=== PATIENT | female | born 1990 | race Caucasian/White ===

== ENCOUNTER 2021-02-11 08:33 | Emergency (ER) | payer BC, OTHER ==
[~2021-02-11 08:33] MED LIST: ABILIFY10 MG PO; COUMADIN7.5 MG PO; ELIQUIS 5 MG TAB5 MG PO; ENOXAPARIN100 MG/1 M SC; IRON325 M1 PO; JANTOVEN7.5 MG PO; LAMICTAL TAB 1100 MG PO; LAMICTAL25 MG PO; MACROBID 100 M100 MG PO; MIRALAX17 GM PO; PREDNISONE 20 M20 MG PO; VITAMIN C500 M4 PO
[2021-02-11] MEDS ORDERED: BACLOFEN10 MG PO (10:22)
== END 2021-02-11 11:18 | disposition home or self-care (01) ==
LOC: ER1 08:33
DX: S20.212A Contusion of left front wall of thorax, initial encounter (principal); I48.91 Unspecified atrial fibrillation; F17.210 Nicotine dependence, cigarettes, uncomplicated; Z90.49 Acquired absence of other specified parts of digestive tract; Z88.5 Allergy status to narcotic agent; Z79.899 Other long term (current) drug therapy; W19.XXXA Unspecified fall, initial encounter; Y92.009 Unspecified place in unspecified non-institutional (private) residence as the place of occurrence of the external cause
CPT/HCPCS: 71111; 99283

== ENCOUNTER → 2021-03-01 | Outpatient (CLI) | payer BC, OTHER ==
[~2021-03-01] MED LIST changes: +BACLOFEN10 MG PO
[2021-03-01 12:08] LABS: HEMOGLOBIN 11.1 gm/dl (12.3-15.3); RED BLOOD COUNT 3.98 M/UL (4.00-5.10); WHITE BLOOD COUNT 7.3 K/UL (4.5-11.0)
[2021-03-01 12:27] LABS: BUN/CREATININE RATIO 10 (0-10)
== END ==
LOC: LAB 10:49
PROVIDERS: Nurse Practitioner Family
DX: R60.9 Edema, unspecified (principal); I10 Essential (primary) hypertension
CPT/HCPCS: 36415; 80053; 80061; 82607; 84443; 85025

== ENCOUNTER → 2021-05-03 | Outpatient (CLI) | payer BC, OTHER | LOC: HEART 5 07:18 | DX: R94.31 Abnormal electrocardiogram [ECG] [EKG] (principal); F17.210 Nicotine dependence, cigarettes, uncomplicated; F31.9 Bipolar disorder, unspecified; I51.7 Cardiomegaly; G47.30 Sleep apnea, unspecified; R00.2 Palpitations; R06.00 Dyspnea, unspecified; R07.9 Chest pain, unspecified | CPT/HCPCS: 78452; A9502 ==

== ENCOUNTER 2021-05-05 10:55 | Emergency (ER) | payer BC, OTHER | END 2021-05-05 12:23 | disposition home or self-care (01) | LOC: ER1 10:55 | DX: F41.1 Generalized anxiety disorder (principal) | CPT/HCPCS: 93005; 99283; Q0177 ==

== ENCOUNTER → 2022-06-02 | Outpatient (CLI) | payer OTHER | LOC: HEART 5 10:48 | DX: R00.2 Palpitations (principal); R06.02 Shortness of breath ==